=== PATIENT | female | born 1995 | race Caucasian/White ===

== ENCOUNTER 2019-12-05 08:35 | Outpatient (CLI) | payer MEDICAID ==
[~2019-12-05] VITALS: Ht 144.8 cm; Wt 73.6 kg
[2019-12-05 09:10] VITALS: BP 131/85; PULSE 78; TEMP 98.4
--- NOTE | 2019-12-05 09:23 | NUR ---
0845 - Pt arrives ambulatory to unit with spouse. Pt states she thinks she is leaking fluid and has been since Wednesday, and lost her mucous plug this morning. Pt denies vagnal bleeding, reports good movement, and states she feels occasional contractions she describes as "mild cramping". EFM explained and placed, vitals taken, assessment complete. 0900 - Amniotrace negative 0905 - SVE 1-2/-3. Repeat Amniotrace with fluid on glove, also negative. 0910 - Dr. Bhagat on unit, report given. See physician notification. 0915 - Discharge orders received. Pt provided handouts on Early Labor and Discomforts of . Instructions given to go home rest and drink plenty of fluids, return to hospital if vaginal bleeding, leaking of fluid, regular contractions 5-7 minutes apart, or change in movement. Pt verbalized understanding. 0974 - Pt and spouse leave unit ambulatory.
== END 2019-12-05 09:25 | disposition home or self-care (01) ==
LOC: LDRO 08:35
DX: O42.92 Full-term premature rupture of membranes, unspecified as to length of time between rupture and onset of labor (principal); Z3A.39 39 weeks gestation of pregnancy

== ENCOUNTER 2019-12-12 05:26 | Inpatient (IN) | payer MEDICAID ==
[~2019-12-12] VITALS: Ht 144.9 cm; Wt 73.6 kg
[2019-12-12] VITALS (18 sets, daily range): BP systolic 99–125; BP diastolic 56–77; PULSE 75–117; TEMP 98.1–98.8
--- NOTE | 2019-12-12 05:40 | NUR ---
0540 TO 211 FOR SCHEDULED REPEAT C/SECT THIS AM. ORIENTED TO ROOM. EFM ON WITH FHR 120 BASELINE AND ACCELS NOTED WITH MOVEMENT. PERMITS SIGNED AND IV STARTED IN LEFT FOREARM AFTER BLOOD OBTAINED FOR LAB WORK. ACCUCHECK DONE PER PT'S GLUCOMETER= 101.
[2019-12-12] MEDS ORDERED: PRENATAL TABLET PO (05:57)
[2019-12-12 06:23] LABS: BASO % 0.3 % (0.0-2.0); EOS % 0.4 % (0-4.0); GRAN # 6.6 (1.4-6.5); GRAN % 68.3 % (42.2-75.2); HEMATOCRIT 39.5 % (37.0-47.0); HEMOGLOBIN 12.5 g/dl (12.5-16.0); LYMPH % 20.4 % (20.0-51.0); MEAN CELL VOLUME 82 fl (80.0-100.0); MEAN CORPUSCULAR HEMOGLOBIN 26 pg (27.0-31.0); MEAN CORPUSCULAR HGB CONC 32 g/dl (33.0-37.0); MONO % 9.9 % (1.7-9.3); PLATELET COUNT 258 K/mm3 (130-400); RED BLOOD COUNT 4.82 M/mm3 (4.10-5.30); REDCELL DISTRIBUTION WIDTH-CV 15.3 % (11.5-14.5)
--- NOTE | 2019-12-12 15:15 | NUR ---
Pt able to raise legs from bed and hold for 5 sec, expresses desire to get out of bed. Harris removed at bedside. Pt up to side of bed, ambulated to bathroom without dizziness or complaints. RN assisted with pericare, clean panties and pad provided, new gown provided, abdominal binder placed. Pt ambulated back to bed, denies needs at this time.
[2019-12-13 00:35] VITALS: BP 130/81; PULSE 90; TEMP 98.8
[2019-12-13 04:15] VITALS: BP 117/73; PULSE 85; TEMP 98.5
[2019-12-13] MEDS ORDERED: IBU600 MG PO (06:26)
[2019-12-13] MEDS ORDERED: PERCOCET 325 MG1 TA2 PO (06:26)
[2019-12-13 08:15] VITALS: BP 115/69; PULSE 98; TEMP 98.1
--- NOTE | 2019-12-13 12:34 | NUR ---
Initial visit; Parents thanked [employer] for offering God's blessings and congratulations for the of their son. [employer] thanked family for choosing [facility].
[2019-12-13 19:44] VITALS: BP 119/78; PULSE 105; TEMP 97.6
[2019-12-14 08:05] VITALS: BP 122/85; PULSE 96; TEMP 98.1
== END 2019-12-14 11:55 | disposition home or self-care (01) | DRG 788 ==
LOC: OB 05:26
PROVIDERS: ADMIT Obstetrics & Gynecology
PROC: 10D00Z1 Extraction of Products of Conception, Low, Open Approach (ICD-10-PCS; principal; 2019-12-12)
DX: O34.211 Maternal care for low transverse scar from previous cesarean delivery (principal); O24.429 Gestational diabetes mellitus in childbirth, unspecified control; E66.9 Obesity, unspecified; O99.214 Obesity complicating childbirth; Z23 Encounter for immunization; Z3A.39 39 weeks gestation of pregnancy; Z37.0 Single live birth
CPT/HCPCS: J0690; J1885; J2175; J2405; J2590; J3010; J7120